=== PATIENT | female | born 1940 | race Asian ===

== ENCOUNTER 2017-04-05 16:27 | Inpatient (IN) | payer MEDICARE, MEDICAID ==
[~2017-04-05] VITALS: Ht 144.8 cm; Wt 49.0 kg
[~2017-04-05 16:27] MED LIST: ALEN70TA5 PO; ASPI-621 PO; ATEN50TA41 PO; ATOR80TA PO; CARV12.543 PO; CLOP75TA22 PO; GLIP-33 PO; HYDR12.53 PO; LEVO112T2 PO; LOSA25TA2 PO; LOSA50TA6 PO; METF1000 PO; METF850T2 PO; ZOLP10TA5 PO
[2017-04-05] MEDS ORDERED: ACET-1600 PO (17:38)
[2017-04-05] MEDS ORDERED: CLOP75TA PO (17:38)
[2017-04-05] MEDS ORDERED: FLUO20CA8 PO (17:38)
[2017-04-05] MEDS ORDERED: LOSA100T6 PO (17:38)
[2017-04-05] MEDS ORDERED: ATOR40TA PO (17:38)
[2017-04-05] MEDS ORDERED: ALPR0.254 PO (17:38)
[2017-04-05] MEDS ORDERED: LEVO100T5 PO (17:38)
[2017-04-05] MEDS ORDERED: METF850T2 PO (17:38)
[2017-04-05] MEDS ORDERED: CARV-39 PO (17:38)
[2017-04-05] MEDS ORDERED: ONDANSETRON 2MG/ML, 2ML ONE (17:49)
[2017-04-05] MEDS ORDERED: SODIUM CHLORIDE 0.9% 1,000ML IVBOLUS ONE (18:00)
[2017-04-05] MEDS ORDERED: ONDANSETRON 2MG/ML, 2ML IVPush ONE (18:00)
[2017-04-05] MEDS ORDERED: SODIUM CHLORIDE FLUSH 10ML SYR IVF ONE (18:00)
[2017-04-05 18:48] LABS: ASPARTATE AMINO TRANSFERASE 23 U/L (15-37); BLOOD UREA NITROGEN 18 mg/dL (7-18)
[2017-04-05 18:50] LABS: PATH.CAST-FLAG NOT PRESENT; SPERM-FLAG NOT PRESENT; SRC-FLAG NOT PRESENT; XTAL-FLAG NOT PRESENT; YLC-FLAG NOT PRESENT
[2017-04-05] MEDS ORDERED: SODIUM CHLORIDE 0.9%, 500ML IVBOLUS ONE (19:30)
[2017-04-05] MEDS ORDERED: NITROFURANTOIN (MACROBID) 100 MG CAPSULE PO ONE (19:30)
[2017-04-05] MEDS ORDERED: ENOXAPARIN 40 MG/0.4 ML SQ SCH (20:00)
[2017-04-05] MEDS ORDERED: ONDANSETRON 2MG/ML, 2ML IVPush PRN ×2 (20:00→20:30)
[2017-04-05] MEDS ORDERED: ENALAPRILAT 1.25 MG/ML, 2ML IVPush PRN (20:00)
[2017-04-05] MEDS ORDERED: CEFTRIAXONE PMX 1GM/50ML 50 ML IV SCH (20:00)
[2017-04-05] MEDS ORDERED: ACETAMINOPHEN 325 MG TABLET PO PRN (20:00)
[2017-04-05] MEDS ORDERED: TEMAZEPAM 15 MG CAPSULE PO PRN (20:00)
[2017-04-05] MEDS ORDERED: CEFTRIAXONE PMX 1GM/50ML 50 ML ONE (20:04)
[2017-04-05] MEDS ORDERED: SODIUM CHLORIDE 0.9% 1,000 ML IV SCH (20:16)
[2017-04-05] MEDS ORDERED: ACETAMINOPHEN 500 MG TABLET PO PRN (20:30)
[2017-04-05] MEDS ORDERED: ONDANSETRON ODT 4 MG PO PRN (20:30)
[2017-04-05] MEDS ORDERED: ATORVASTATIN 40 MG TABLET PO SCH (21:00)
[2017-04-05 21:26] LABS: IS PT STATUS REG ER OR PRE ER? YES
[2017-04-05] MEDS ORDERED: GLUCAGON 1 MG IM PRN (22:00)
[2017-04-05] MEDS ORDERED: DEXTROSE 50%, 50ML SYRINGE IVPush PRN (22:00)
[2017-04-05] MEDS ORDERED: DEXTROSE 4 GM TAB.CHEW PO PRN (22:00)
[2017-04-05 23:31] VITALS: BP 137/69
[2017-04-05] MEDS: CARVEDILOL 25 MG TABLET PO SCH (23:54)
[2017-04-05] MEDS: SODIUM CHLORIDE 0.9% 1,000 ML IV SCH (23:54)
[2017-04-06 02:00] VITALS: BP 107/55
[2017-04-06 05:49] LABS: ASPARTATE AMINO TRANSFERASE 20 U/L (15-37); BLOOD UREA NITROGEN 16 mg/dL (7-18)
[2017-04-06 05:52] LABS: IS PT STATUS REG ER OR PRE ER? NO
[2017-04-06] MEDS ORDERED: LEVOTHYROXINE 100 MCG TABLET PO SCH (06:00)
[2017-04-06] MEDS ORDERED: MAGNESIUM SULFATE PMX 2GM/50ML 50 ML IV ONE (06:00)
[2017-04-06] MEDS ORDERED: POTASSIUM CHLORIDE 20 MEQ TAB.ER.PRT PO ONE (06:30)
[2017-04-06] MEDS: INSULIN ASPART 100 UNITS/ML, PEN SQ-INSULIN SCH ×3 (07:00→17:47)
[2017-04-06] MEDS ORDERED: PANTOPRAZOLE 20MG TABLET PO SCH (07:30)
[2017-04-06 08:06] VITALS: BP 124/64
[2017-04-06] MEDS: CARVEDILOL 25 MG TABLET PO SCH (08:16)
[2017-04-06] MEDS ORDERED: LOSARTAN 50MG TABLET PO SCH (09:00)
[2017-04-06] MEDS ORDERED: CLOPIDOGREL 75 MG TABLET PO SCH (09:00)
[2017-04-06] MEDS ORDERED: FLUOXETINE 20 MG CAPSULE PO SCH (09:00)
[2017-04-06] MEDS ORDERED: SODIUM CHLORIDE FLUSH 10ML SYR IVF SCH (09:00)
[2017-04-06] MEDS ORDERED: ASPIRIN 81 MG TABLET EC PO SCH (09:00)
[2017-04-06 09:25] LABS: IS PT STATUS REG ER OR PRE ER? NO
[2017-04-06] MEDS ORDERED: POLYETHYLENE GLYCOL 17 GM PACKET PO PRN (11:00)
[2017-04-06] MEDS: SODIUM CHLORIDE 0.9% 1,000 ML IV SCH (11:42)
[2017-04-06 13:49] VITALS: BP 134/75
[2017-04-06] MEDS ORDERED: OMEP20TA2 PO (16:17)
[2017-04-06] MEDS ORDERED: CEFU500T50 PO (16:17)
[2017-04-06] MEDS ORDERED: LEVO125T PO (16:17)
[2017-04-06 16:44] LABS: IS PT STATUS REG ER OR PRE ER? NO
[2017-04-06] MEDS ORDERED: PNEUMOCOCCAL 23 VACCINE IM-VACC ONE (18:00)
[2017-04-07] MEDS ORDERED: LEVOTHYROXINE 125 MCG TABLET PO SCH (06:00)
== END 2017-04-06 19:10 | disposition home or self-care (01) | DRG 74 ==
LOC: ED 18:11 → INTOOBSV 19:28 → EDIP 19:28 → SUATTDRO 19:34 → OBSVTOIN 21:42 → 5SO 23:12
PROVIDERS: ADMIT Internal Medicine; ATTEND Internal Medicine
DX: E11.43 Type 2 diabetes mellitus with diabetic autonomic (poly)neuropathy (principal); I24.9 Acute ischemic heart disease, unspecified; N39.0 Urinary tract infection, site not specified; E87.2 Acidosis; E86.0 Dehydration; E03.9 Hypothyroidism, unspecified; E78.00 Pure hypercholesterolemia, unspecified; E78.5 Hyperlipidemia, unspecified; F32.9 Major depressive disorder, single episode, unspecified; F41.9 Anxiety disorder, unspecified; M19.90 Unspecified osteoarthritis, unspecified site; I10 Essential (primary) hypertension; E11.9 Type 2 diabetes mellitus without complications; I25.2 Old myocardial infarction; Z79.4 Long term (current) use of insulin; Z95.1 Presence of aortocoronary bypass graft; Z79.82 Long term (current) use of aspirin; Z79.84 Long term (current) use of oral hypoglycemic drugs; Z79.899 Other long term (current) drug therapy; K21.9 Gastro-esophageal reflux disease without esophagitis; K31.84 Gastroparesis; K26.9 Duodenal ulcer, unspecified as acute or chronic, without hemorrhage or perforation
CPT/HCPCS: 36415; 80053; 81001; 82962; 83605; 83690; 83735; 84443; 84484; 85025; 87040; 87077; 87086; 87186; 87324; 90732; 93005; 96361; 96365; 96366; 96375; G0378; J0696; J1650; J1815; J2405; J3475; J7030; J7040

== ENCOUNTER → 2017-10-06 | Outpatient (CLI) | payer MEDICARE, MEDICAID ==
[~2017-10-06] MED LIST changes: +ACET-1600 PO; +ALPR0.254 PO; +ATOR40TA PO; +CARV-39 PO; +CEFU500T50 PO; +CLOP75TA PO; -CLOP75TA22 PO; +CLOP75TA52 PO; +FLUO20CA8 PO; +LEVO100T5 PO; +LEVO125T PO; +LOSA100T6 PO; +OMEP20TA9 PO; +REGADENOSON 0.4 MG/5 ML SYRINGE ONE
== END | disposition home or self-care (01) ==
LOC: RAD 12:17
PROVIDERS: ATTEND Internal Medicine Cardiovascular Disease
DX: I25.89 Other forms of chronic ischemic heart disease (principal); I25.10 Atherosclerotic heart disease of native coronary artery without angina pectoris; I10 Essential (primary) hypertension; Z95.1 Presence of aortocoronary bypass graft
CPT/HCPCS: 78452; 93017; A9502; J2785

== ENCOUNTER → 2018-04-10 | Outpatient (CLI) | payer MEDICARE, MEDICAID ==
[~2018-04-10] MED LIST changes: -REGADENOSON 0.4 MG/5 ML SYRINGE ONE
== END | disposition home or self-care (01) ==
LOC: CFH 09:05
PROVIDERS: ATTEND Internal Medicine Cardiovascular Disease
DX: I08.0 Rheumatic disorders of both mitral and aortic valves (principal); I25.10 Atherosclerotic heart disease of native coronary artery without angina pectoris; I10 Essential (primary) hypertension; E11.9 Type 2 diabetes mellitus without complications; E78.5 Hyperlipidemia, unspecified
CPT/HCPCS: 93306

== ENCOUNTER → 2019-11-30 | Outpatient (CLI) | payer MEDICARE, MEDICAID ==
[~2019-11-30] MED LIST changes: -ALEN70TA5 PO; +ALEN70TA6 PO; -ASPI-621 PO; +ASPI81TA45 PO; +FLUO20CA23 PO; -FLUO20CA8 PO; +HYDR12.517 PO; -HYDR12.53 PO; +LOSA100T14 PO; -LOSA100T6 PO; +LOSA50TA14 PO; -LOSA50TA6 PO; +METF850T10 PO; -METF850T2 PO; +REGADENOSON 0.4 MG/5 ML SYRINGE ONE
== END | disposition home or self-care (01) ==
LOC: CFH 08:29
PROVIDERS: ATTEND Internal Medicine Cardiovascular Disease
DX: I25.10 Atherosclerotic heart disease of native coronary artery without angina pectoris (principal); I70.213 Atherosclerosis of native arteries of extremities with intermittent claudication, bilateral legs
CPT/HCPCS: 78452; 93017; A9502; J2785